=== PATIENT | female | born 1980 | race Caucasian/White ===

== ENCOUNTER 2017-11-15 22:04 | Emergency (ER) | payer MEDICAID, OTHER ==
[~2017-11-15] VITALS: Ht 175.3 cm; Wt 99.8 kg
[2017-11-15 22:56] LABS: Eosinophils # (auto) 0.1 uL; Lymphocytes # (auto) 1.2 uL; Mean Corpuscular Hemoglobin 24.6 pg (28.0-32.0); Mean Corpuscular Hgb Conc. 31.9 g/dL (32.0-36.0); Monocytes # (auto) 0.3 uL; Neutrophils # (auto) 4.1 uL; Nucleated Red Blood Cells % 0.3 %; White Blood Cell 5.8 10^3/uL (4.4-10.8)
[2017-11-15 22:57] LABS: Basophils # (auto) 0 uL; Basophils % (auto) 0.7 % (0.0-2.0); Hematocrit 37.7 % (36.0-46.0); Lymphocytes % (auto) 21.1 % (10.0-50.0); Mean Corpuscular Volume 77.1 fL (80.0-100.0); Monocytes % (auto) 5.6 % (0.0-12.0); Neutrophils % (auto) 70.6 % (37.0-80.0); Platelet Count (auto) 241 10^3/uL (140-450); Red Blood Cells 4.88 10^6/uL (4.0-5.20); Red Cell Distribution Width 18.7 % (11.8-14.3)
[2017-11-15 23:10] LABS: Alanine Aminotransferase 108 U/L (13-56); Albumin 3.8 g/dL (3.4-5.0); Anion Gap 13 (5-15); Aspartate Aminotransferase 256 U/L (15-37); BUN/Creatinine Ratio 8.8; Blood Alcohol < 3.0 mg/dL (0-5); Blood Urea Nitrogen 10 mg/dL (7-18); Calcium 8.2 mg/dL (8.5-10.1); Carbon Dioxide 21 mmol/L (21-32); Chloride 101 mmol/L (98-107); GFR African American 69 mL/min; GFR Non-African American 57 mL/min; Glucose 133 mg/dL (74-106); Potassium 3.6 mmol/L (3.5-5.1); Sodium 135 mmol/L (136-145)
[2017-11-15 23:14] LABS: Alkaline Phosphatase 120 U/L (45-117); Bilirubin, Total 1.2 mg/dL (0.2-1.0); Total Protein 8.7 g/dL (6.4-8.2)
[2017-11-16 00:24] VITALS: BP 127/71
== END 2017-11-16 01:18 | disposition left against medical advice (07) ==
LOC: ER 22:04
DX: F41.9 Anxiety disorder, unspecified (principal); Z53.21 Procedure and treatment not carried out due to patient leaving prior to being seen by health care provider
CPT/HCPCS: 36415; 80053; 80320; 84484; 85025

== ENCOUNTER 2018-09-14 06:57 | Emergency (ER) | payer MEDICAID ==
[~2018-09-14] VITALS: Ht 175.3 cm; Wt 90.7 kg
[2018-09-14] MEDS ORDERED: SODIUM CHLORIDE 0.9% 1,000 ML IV ONE ×2 (08:06)
[2018-09-14] MEDS ORDERED: THIAMINE 100mg/ml INJ (200mg/2ml VIAL) IV ONE (08:15)
[2018-09-14 08:28] LABS: Urine Pregnacy Test Negative (Negative)
[2018-09-14] MEDS ORDERED: chlordiazePOXIDE HCL 5 MG CAP PO ONE (08:30)
[2018-09-14 08:34] LABS: Urine Bacteria FEW /hpf (None Seen); Urine Blood 1+ /uL (Negative); Urine Hyaline Cast MOD /lpf (0 - 2); Urine Mucus FEW (None Seen); Urine Specific Gravity 1.009 (1.001-1.035); Urine WBC 19 /hpf (0 - 5)
[2018-09-14 08:35] LABS: Basophils # (auto) 0.1 uL; Basophils % (auto) 0.9 % (0.0-2.0); Eosinophils # (auto) 0.1 uL; Monocytes # (auto) 0.4 uL
[2018-09-14 08:37] LABS: Eosinophils % (auto) 1.2 % (0.0-7.0); Hematocrit 37.6 % (36.0-46.0); Lymphocytes # (auto) 1.4 uL; Lymphocytes % (auto) 23.8 % (10.0-50.0); Mean Corpuscular Hemoglobin 25.9 pg (28.0-32.0); Mean Corpuscular Hgb Conc. 32.1 g/dL (32.0-36.0); Mean Corpuscular Volume 80.9 fL (80.0-100.0); Monocytes % (auto) 7.5 % (0.0-12.0); Neutrophils % (auto) 66.6 % (37.0-80.0); Nucleated Red Blood Cells % 0.3 %; Platelet Count (auto) 218 10^3/uL (140-450); Red Blood Cells 4.64 10^6/uL (4.0-5.20)
[2018-09-14 08:41] LABS: Red Cell Distribution Width 30.2 % (11.8-14.3)
[2018-09-14] MEDS ORDERED: ONDANSETRON HCL 4 MG/2 ML VIAL ONE (08:41)
[2018-09-14] MEDS ORDERED: ONDANSETRON HCL 4 MG/2 ML VIAL IV ONE (08:45)
[2018-09-14 08:51] LABS: Amphetamine Screen, Urine POSITIVE (NEGATIVE); Barbiturate Scree,Urine NEGATIVE (NEGATIVE); Benzodiazephine Screen, Urine POSITIVE (NEGATIVE); Cannabinoid Screen, Urine NEGATIVE (NEGATIVE); Cocaine Screen, Urine NEGATIVE (NEGATIVE); Phencyclidine Screen, Urine NEGATIVE (NEGATIVE)
[2018-09-14 08:57] LABS: Albumin 3.7 g/dL (3.4-5.0); Anion Gap 23 (5-15); BUN/Creatinine Ratio 2.2; Blood Urea Nitrogen 2 mg/dL (7-18); Calcium 8.4 mg/dL (8.5-10.1); Carbon Dioxide 21 mmol/L (21-32); Chloride 90 mmol/L (98-107); GFR African American 86 mL/min; GFR Non-African American 71 mL/min; Glucose 101 mg/dL (74-106); Sodium 134 mmol/L (136-145)
[2018-09-14 08:59] LABS: Opiate Scree,Urine NEGATIVE (NEGATIVE)
[2018-09-14 09:04] LABS: Alanine Aminotransferase 61 U/L (13-56); Alkaline Phosphatase 143 U/L (45-117); Aspartate Aminotransferase 149 U/L (15-37); Bilirubin, Total 1.2 mg/dL (0.2-1.0); Total Protein 8.4 g/dL (6.4-8.2)
[2018-09-14 09:11] LABS: Potassium 2.7 mmol/L (3.5-5.1)
[2018-09-14] MEDS ORDERED: cefTRIAXone 1GM/50ML D5W 50 ML IV ONE (09:30)
[2018-09-14] MEDS: POTASSIUM EFFERVESENT TAB 25 MEQ PO ONE ×2 (09:30→09:31)
[2018-09-14] MEDS ORDERED: POTASSIUM CHL 20MEQ/100ML 100 ML IV ONE (10:15)
[2018-09-14] MEDS ORDERED: LORazepam 2MG/ML-1ML VIAL ONE (10:56)
[2018-09-14] MEDS ORDERED: LORazepam 2MG/ML-1ML VIAL IM ONE (11:00)
[2018-09-14] MEDS ORDERED: LORazepam 2MG/ML-1ML VIAL IV ONE ×2 (11:15→15:15)
[2018-09-14] MEDS ORDERED: PANTOPRAZOLE 40 MG/10 ML VIAL INJ IV ONE (11:45)
[2018-09-14] MEDS ORDERED: FOLIC ACID 1 MG, MULTIPLE VITAMIN 10 ML, MAGNESIUM SULF SDV 50% 8 MEQ, THIAMINE INJ 100... INJ SCH ×5 (12:00)
[2018-09-14] MEDS ORDERED: PROMETHAZINE HCL 25 MG/ML 1ML IV ONE (15:15)
[2018-09-14 16:20] VITALS: BP 120/74
== END 2018-09-14 17:52 | disposition home or self-care (01) ==
LOC: ER 06:57
DX: F10.239 Alcohol dependence with withdrawal, unspecified (principal); F15.90 Other stimulant use, unspecified, uncomplicated; N39.0 Urinary tract infection, site not specified; R07.9 Chest pain, unspecified
CPT/HCPCS: 36415; 71045; 80053; 80307; 80320; 81001; 81025; 85025; 96361; 96365; 96366; 96367; 96368; 96375; 96376; 99284; C9113; J0696; J2060; J2405; J2550; J3411; J3475; J3480; J7030